=== PATIENT | male | born 1940 | race Caucasian/White ===

== ENCOUNTER 2019-02-08 10:15 | Outpatient (REF) | payer MEDICARE, SELFPAY ==
[2019-02-08 13:38] LABS: ALT 28 U/L (12-78); AST 21 U/L (15-37); Albumin 3.6 g/dL (3.4-5.0); Alkaline Phosphatase 164 U/L (46-116); Anion Gap 10.6 mmol/L (3-11); BUN 26 mg/dL (7-18); Bilirubin, Total 0.7 mg/dL (0.2-1.0); CO2 24.4 mmol/L (21.0-32.0); CREATININE 1.02 mg/dL (0.70-1.30); Chloride 108 mmol/L (98-107); Cholesterol 148 mg/dL (50-200); Glucose 89 mg/dL (70-100); HDL Cholesterol 47 mg/dL (40-60); LDL CHOLESTEROL 88 mg/dL (<100); Potassium 4.2 mmol/L (3.5-5.1); Sodium 143 mmol/L (136-145); Total Protein 6.3 g/dL (6.4-8.2); Triglyceride 67 mg/dL (30-150)
[2019-02-08 13:54] LABS: Calcium 8.7 mg/dL (8.5-10.1)
== END 2019-02-08 10:35 ==
LOC: NCHCN 10:15
PROVIDERS: PCP Nurse Practitioner Family; Visit Provider Nurse Practitioner Family
DX: I10 Essential (primary) hypertension (principal)
CPT/HCPCS: 80053; 80061; 83721

== ENCOUNTER 2020-09-05 19:57 | Emergency (ER) | payer OTHER, SELFPAY ==
[2020-09-05] VITALS (16 sets, daily range): BP systolic 164–226; BP diastolic 67–97; PULSE 61–89; RESP 11–26; TEMP 37.1; O2SAT 95–98
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
[2020-09-05] MEDS: Normal Saline 1,000 ML 150 ML IV (20:45)
--- NOTE | 2020-09-05 20:45 | RT.EKG_ITS ---
APPROVED REPORT Exam: Resting ECG Patient Location: E HR:73 bpm ECG Measurements Heart Rate 73 AXIS NC 206 P 42 QRSd 97 QRS 30 QT 403 T 50 QTc 445 Conclusion Sinus arrhythmia...V-rate 64- 88, variation>10% Normal Victor No Acute ST changes.
[2020-09-05 21:06] LABS: Abs Immature Grans 0.03 10^3/uL (0.0-0.06); Absolute Basophil Count 0.03 10^3/uL (0.0-0.2); Absolute Eosinophil Count 0.31 10^3/uL (0.0-0.7); Absolute Lymphocyte Count 1.29 10^3/uL (1.2-3.4); Absolute Monocyte Count 0.57 10^3/uL (0.1-0.8); Absolute Neutrophil Count 4.75 10^3/uL (1.2-6.7); Basophils % 0.4; Eosinophils % 4.4; HCT 45.6 % (40.0-50.0); HGB 15.2 g/dL (13.5-17.5); Immature Grans % 0.4; Lymphocytes % 18.5; MCH 30.8 pg (27.0-33.0); MCHC 33.3 % (32.0-36.0); MCV 92.5 fL (80-95); MPV 9.5 fL (8.0-11.0); Monocytes % 8.2; Neutrophils % 68.1; Nucleated RBC 0 %; Platelet Count 211 10^3/uL (130-400); RBC 4.93 10^6/uL (4.36-5.78); RDW 12.6 % (11.8-14.1); RDW-SD 42.9 fL; WBC 6.98 10^3/uL (4.4-10.8)
[2020-09-05] MEDS: Omnipaque 350 MG/ML 100 ML BTL IJ ×2 (21:23→21:50)
[2020-09-05] MEDS: Normal Saline - Diluent 50 ML VIAL IV ×2 (21:24→21:52)
[2020-09-05 21:27] LABS: ALT 34 U/L (16-63); AST 20 U/L (15-37); Albumin 3.6 g/dL (3.4-5.0); Alkaline Phosphatase 136 U/L (46-116); Anion Gap 5.6 mmol/L (3-11); BUN 23 mg/dL (7-18); Bilirubin, Total 0.4 mg/dL (0.2-1.0); CO2 28.4 mmol/L (21.0-32.0); CREATININE 1.37 mg/dL (0.70-1.30); Calcium 8.5 mg/dL (8.5-10.1); Chloride 105 mmol/L (98-107); Glucose 107 mg/dL (74-106); Potassium 3.9 mmol/L (3.5-5.1); Sodium 139 mmol/L (136-145); Total Protein 6.9 g/dL (6.4-8.2)
[2020-09-05 21:32] LABS: Prothrombin Time 10.4 sec (9.3-11.0)
[2020-09-05 21:43] LABS: Troponin I < 0.05 ng/mL (<0.06)
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
== END 2020-09-05 23:15 | disposition home or self-care (01) ==
LOC: ER 22:04
PROVIDERS: Emergency Provider Nurse Practitioner Acute Care; PCP Nurse Practitioner Family
DX: M54.6 Pain in thoracic spine (principal); R10.11 Right upper quadrant pain; V43.62XA Car passenger injured in collision with other type car in traffic accident, initial encounter
CPT/HCPCS: 36415; 74177; 80053; 86850; 86900; 86901; 93005; 96360; 96361; 99285; 70450; 71260; 72125; 83735; 84484; 85025; 85610; 85730; 93010; 99284; J3490

== ENCOUNTER 2021-07-16 16:22 | Outpatient (REF) | payer MEDICARE, SELFPAY ==
[2021-07-16 17:35] LABS: HCT 48.5 % (40.0-50.0); HGB 15.9 g/dL (13.5-17.5); MCH 30.8 pg (27.0-33.0); MCHC 32.8 % (32.0-36.0); MCV 93.8 fL (80-95); MPV 10.1 fL (8.0-11.0); Platelet Count 180 10^3/uL (130-400); RBC 5.17 10^6/uL (4.36-5.78); RDW-SD 45.3 fL; WBC 5.05 10^3/uL (4.4-10.8)
[2021-07-16 18:49] LABS: ALT 29 U/L (16-63); AST 16 U/L (15-37); Albumin 3.9 g/dL (3.4-5.0); Alkaline Phosphatase 171 U/L (46-116); Anion Gap 9.9 mmol/L (3-11); BUN 32 mg/dL (7-18); Bilirubin, Total 0.8 mg/dL (0.2-1.0); CO2 25.1 mmol/L (21.0-32.0); CREATININE 1.1 mg/dL (0.70-1.30); Calcium 8.9 mg/dL (8.5-10.1); Calculated LDL 88 mg/dL (<100); Chloride 110 mmol/L (98-107); Cholesterol 152 mg/dL (<200); Glucose 86 mg/dL (74-106); HDL Cholesterol 56 mg/dL (40-60); Potassium 4.5 mmol/L (3.5-5.1); Sodium 145 mmol/L (136-145); Total Protein 6.6 g/dL (6.4-8.2); Triglyceride 40 mg/dL (<150)
== END 2021-07-16 16:23 | disposition home or self-care (01) ==
LOC: NCHCN 16:22
PROVIDERS: PCP Nurse Practitioner Family; Visit Provider Physician Assistant
DX: I10 Essential (primary) hypertension (principal)
CPT/HCPCS: 80053; 80061; 85027

== ENCOUNTER 2022-02-11 18:40 | Outpatient (REF) | payer MEDICARE, SELFPAY ==
[2022-02-11 15:31] LABS: ALT 30 U/L (16-63); AST 19 U/L (15-37); Albumin 3.9 g/dL (3.4-5.0); Alkaline Phosphatase 106 U/L (46-116); Anion Gap 9.7 mmol/L (3-11); BUN 31 mg/dL (7-18); Bilirubin, Total 0.9 mg/dL (0.2-1.0); CO2 23.3 mmol/L (21.0-32.0); CREATININE 1.1 mg/dL (0.70-1.30); Calcium 8.8 mg/dL (8.5-10.1); Chloride 110 mmol/L (98-107); Glucose 96 mg/dL (74-106); Potassium 4.8 mmol/L (3.5-5.1); Sodium 143 mmol/L (136-145); Total Protein 6.6 g/dL (6.4-8.2)
== END 2022-02-11 18:41 | disposition home or self-care (01) ==
LOC: NCHCN 18:40
PROVIDERS: PCP Nurse Practitioner Family; Visit Provider Physician Assistant
DX: M88.9 Osteitis deformans of unspecified bone (principal)
CPT/HCPCS: 80053

== ENCOUNTER → 2022-04-27 09:21 | Outpatient (BNVA) | payer MEDICARE, SELFPAY | PROVIDERS: PCP Nurse Practitioner Family; Referring Provider Nurse Practitioner Family; Visit Provider Surgery | DX: K46.9 Unspecified abdominal hernia without obstruction or gangrene (principal) | CPT/HCPCS: 99214; 99241 ==

== ENCOUNTER 2022-05-04 02:49 | Outpatient (CLI) | payer MEDICARE, SELFPAY ==
[2022-05-04 10:31] LABS: Source Nasal/Nares
[2022-05-04 14:06] LABS: COVID-19 PCR Negative (Negative)
== END 2022-05-04 02:50 | disposition home or self-care (01) ==
LOC: LBO 02:49
PROVIDERS: PCP Physician Assistant; Visit Provider Surgery
DX: Z20.822 Contact with and (suspected) exposure to COVID-19 (principal); Z01.818 Encounter for other preprocedural examination
CPT/HCPCS: 87635

== ENCOUNTER 2022-05-06 06:12 | Day surgery (SDC) | payer MEDICARE, SELFPAY ==
[2022-05-06] VITALS (9 sets, daily range): BP systolic 110–161; BP diastolic 51–67; PULSE 53–63; RESP 16–18; TEMP 36.3–36.5; O2SAT 94–99; BMI 27.0
[2022-05-06] MEDS: Acetaminophen 500 MG TAB 1000 MG PO (06:46)
[2022-05-06] MEDS: Gabapentin 300 MG CAP 600 MG PO (06:47)
[2022-05-06] MEDS: Celecoxib 200 MG CAP PO (06:47)
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
[2022-05-06] MEDS: Lactated Ringers 1,000 ML 80 ML IV (07:05)
--- NOTE | 2022-05-06 07:28 | W.PM.DSUDISC ---
Discharge Plan Disposition Patient Disposition: HOME Condition: Good Discharge Details Reason For Visit: left inguinal herniorraphy Attending Provider: Kurt Kebede Primary Care Provider: Skinny Tucker Home Meds and New Rx's Prescriptions: Continued lisinopril 20 mg tablet 20 mg PO DAILY alendronate [Fosamax] 70 mg tablet 70 mg PO QWEEK Discharge Instructions Instructions: Inguinal Hernia Repair (DC) Additional Instructions: 1. Resume all of your medications. 2. Use percocet as needed for pain 3. No heavy lifting until I see you in the office 4. No soaking or tub baths until I see you in the office DS: Diagnosis Discharge Diagnosis (1) Indirect left inguinal hernia: Status: Acute Asessment and Plan: herniuorraphy with mesh
[2022-05-06] MEDS: ceFAZolin 2 GM/50 ML BAG IVPB (07:31)
[2022-05-06] MEDS: Bupivacaine 0.5% Pres-Free 30 ML VIAL (07:58)
--- NOTE | 2022-05-06 08:21 | W.ANESNERVE ---
Nerve Block Single Injection Procedure Date and Time Date Performed: 05/06/22 Procedure Start: 07:43 Location Where Procedure Performed Procedure Location: Operating Room Procedure Stop: 07:49 Reason Performed: Postoperative Analgesia Requesting Provider: Kurt Kebede Timeout Performed Timeout Performed: Yes Monitoring Used ECG, Blood Pressure, SpO2, ETCO2 and See EMR for corresponding vital signs Sterility Sterility: Hand Hygiene, Surgical Cap, Surgical Mask, Sterile Gloves and Chlorhexidine Sedation Given During Procedure Sedation Given (Indicate Dose Given): No Sedation given Patient Mental Status Patient Mental Status: Performed under general anesthesia Nerve Block 1st Nerve Block: Laterality: Left Block Type: TAP Unilateral Needle / Catheter Used: 100mm SonoPlex II Local Anesthetic Bolus (Indicate Dose Given): Injected in 3-5ml increments after negative blood aspiration and Bupivacaine 0.25% Dose:: 30mL Additives (Indicate Dose Given): Precedex Dose:: 40mcg Ultrasound: Sterile probe cover and gel used Ultrasound Image Saved?: Yes Nerve Stimulator: Not Used Paresthesia: None Procedure Tolerated: No Complications Procedure Outcome: Successful Performed By: Kassandra Aquino
--- NOTE | 2022-05-06 08:47 | W.PM.DSUDISC ---
Discharge Plan Disposition Patient Disposition: HOME Condition: Good Discharge Details Reason For Visit: left inguinal herniorraphy Attending Provider: Kurt Kebede Primary Care Provider: Skinny Tucker Home Meds and New Rx's Prescriptions: New oxycodone 5 mg tablet 5 mg PO Q8H PRN (Reason: pain) Qty: 5 0RF Rx Instructions: take one tab as needed for pain. do not exceed 3 atbs per day Continued lisinopril 20 mg tablet 20 mg PO DAILY alendronate [Fosamax] 70 mg tablet 70 mg PO QWEEK Discharge Instructions Instructions: Inguinal Hernia Repair (DC) Additional Instructions: 1. Resume all of your medications. 2. Use oxycodone as needed for pain. 3. Okay to use tylenol and ibuprofen over the counter as needed. 4. Leave bandage in place for 24 hours, then remove. 5. Shower with warm soapy water. Pat dry. Use a bandaid if needed to protect your clothing. 6. No soaking or tub baths until I see you in the office. 7. No heavy lifting until I see you in the office. 8.Call the office (or go directly to the emergency room after hours) if you notice any of the following: Develop chills (warm to touch), or if you have a thermometer and your temperature is above 101 Difficulty breathing or difficultly swallowing Persistent vomiting Any bleeding ? exceeding one tablespoon 6. Call your physician if the site where your intravenous was started becomes red, swollen, painful, and warm to touch. Referrals: Kurt Kebede MD [ [facility] STAFF PHYSICIAN] - Activity:: Activity as Tolerated Remove Dressings/Wound Care:: 24 hours Shower/Bathe:: 24 hours Diet:: As Tolerated Discharge Orders Discharge Orders: Discharge Order (Routine); Ordered 05/06/22 Ordered By: Kurt Kebede DS: Diagnosis Discharge Diagnosis (1) Left inguinal hernia: Status: Acute Asessment and Plan: Open left inguinal herniorrhaphy with mesh
[2022-05-06] MEDS: Bupivacaine 0.25% Pres-Free 30 ML VIAL (08:51)
--- NOTE | 2022-05-06 08:58 | ROE_ITS ---
Date of service: 05/06/22 Time of Service: 08:58 Operative Note Operative Note DATE OF PROCEDURE: 05/06/22 PRE-OP DIAGNOSIS: Left inguinal hernia POST-OP DIAGNOSIS: same PROCEDURE: Open left inguinal herniorrhaphy with mesh SURGEON: Kurt Kebede ASSISTING SURGEON: Eunice Zacarias ANESTHESIA TYPE: General LMA/ETT Refer to Anesthesia Record ESTIMATED BLOOD LOSS: 25 PATHOLOGY: none sent COMPLICATIONS: None Patient was transported to: same day Patient's condition: stable Implants: Mesh plug and patch Findings: Left inguinal hernia with direct and indirect components Procedure Description: I began by confirming the correct site with the patient. Next, after induction of general anesthesia and a ultrasound-guided local block I turned my attention to the surgical field. The surgical site was then prepped and draped in the usual fashion. I began by making an oblique incision over the left inguinal region. I dissected down through the skin to the deep fascia. Next, I incised the fascia along the length of the inguinal canal to the external ring. I then carefully identified the ilioinguinal nerve it was fairly adherent to the cord structures, and after great consideration, I chose to divide the nerve to minimize the chances of postoperative neuropathy. Once this was complete, I bluntly dissected the shelving edge of the inguinal ligament down towards the pubic tubercle. Here, I encircled all cord structures with a Sylvester drain. Next, I began dissecting the specific cord structures. Great care was taken to spare the vas deferens and the blood supply to the testicle. Next, I isolated the hernia sac from the other inguinal structures. I reduced it back to its normal anatomic position. I then used a large mesh plug to obliterate the defect at the internal ring. I fixed in place with interrupted Prolene stitches. In this case, there was a modest amount of direct inguinal hernia as well due to laxity of the inguinal floor and posterior wall. Next, I buttressed the posterior floor of the inguinal canal with a large mesh patch. I started by fixing it to the pubic tubercle. Next, I used Prolene sutures to affix it to the shelving edge of the inguinal ligament and the conjoined tendon. Laterally I tacked it to the transversalis fascia and reconstructed an internal ring without any strain on the cord structures. Once this was complete, I irrigated the surgical field. It appeared hemostatic. I then closed the anterior portion of the fascia to reconstruct the front wall of the inguinal canal. I did this with interrupted Vicryl stitches. Once again, I irrigated the surgical field a nd inspected for hemostasis. Finally, I approximated the superficial fascia and the deep layers of the skin with absorbable suture. Skin was closed with running subcuticular stitches. Bandages were applied, the patient was awakened and transferred to the recovery unit.
--- NOTE | 2022-05-06 10:04 | W.ANESPOSTOP ---
Postoperative Evaluation Date, Time and Location Date Performed: 05/06/22 Time Performed: 09:40 Patient Location: PACU Vital Signs Most Recent Imported Vital Signs: Most Recent Vital Signs Temp Pulse Resp BP Pulse Ox 36.4 C L 63 16 110/60 94 05/06/22 09:45 05/06/22 09:45 05/06/22 09:45 05/06/22 09:45 05/06/22 09:45 Pain Score Most Recent Pain Score: Most Recent Pain Score Pain Level 1 05/06/22 09:39 Assessment Mental Status: Awake (Alert & Oriented to Patient Baseline) Airway and Respiratory Function: Patent airway with normal (patient baseline) respiratory exam Cardiovascular Function: Hemodynamically Stable Hydration Status: Adequately Hydrated Nausea & Vomiting: No Nausea or Vomiting Pain: Pain is tolerable per patient Peripheral Nerve Block: Regional nerve block not resolved at time of post operative discharge
== END 2022-05-06 11:44 | disposition home or self-care (01) ==
PROVIDERS: PCP Physician Assistant; Visit Provider Surgery
PROC: (CPT 49505; principal; 2022-05-06 07:30)
DX: K40.90 Unilateral inguinal hernia, without obstruction or gangrene, not specified as recurrent (principal); I10 Essential (primary) hypertension
CPT/HCPCS: 49505; 76942; C1781; J0690; J1100; J2405

== ENCOUNTER → 2022-05-18 08:35 | Outpatient (BNVA) | payer MEDICARE, SELFPAY | PROVIDERS: PCP Physician Assistant; Referring Provider Nurse Practitioner Family; Visit Provider Surgery | DX: Z48.817 Encounter for surgical aftercare following surgery on the skin and subcutaneous tissue (principal) ==

== ENCOUNTER 2023-07-21 10:57 | Emergency (ER) | payer MEDICARE, SELFPAY ==
[2023-07-21] VITALS (8 sets, daily range): BP systolic 158–207; BP diastolic 67–86; PULSE 63–74; RESP 16; TEMP 36.6; O2SAT 95
--- NOTE | 2023-07-21 11:15 | DI.RAD_ITS ---
Exam(s) XR RIBS RT W PA LAT CHEST EXAM: XR RIBS RT W PA LAT CHEST CLINICAL HISTORY: rib pain R and SOB TECHNIQUE: 2D digital imaging was performed. COMPARISON: No exams were available for comparison FINDINGS: RIBS 3 VIEWS-RIGHT There are no obvious acute right rib fractures evident. No lytic rib lesions identified. CXR- 2 VIEWS: Heart size is normal. Mediastinum not widened. There is a moderate size right pleural effusion. Al so infiltrate in the right lung base. Left lung is clear. No pneumothorax. IMPRESSION: 1. No obvious rib fractures evident. Also no significant rib lesions. 2. Infiltrate in the right lung base and there is a small-moderate size right pleural effusion. DATA REPOSITORY: RADIATION DOSE DELIVERED:
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
[2023-07-21 13:01] LABS: Abs Immature Grans 0.03 10^3/uL (0.0-0.06); Absolute Basophil Count 0.05 10^3/uL (0.0-0.2); Absolute Eosinophil Count 0.19 10^3/uL (0.0-0.7); Absolute Lymphocyte Count 1.17 10^3/uL (1.2-3.4); Absolute Monocyte Count 1.33 10^3/uL (0.1-0.8); Absolute Neutrophil Count 7.07 10^3/uL (1.2-6.7); Basophils % 0.5; Eosinophils % 1.9; HCT 49.4 % (40.0-50.0); HGB 16.8 g/dL (13.5-17.5); Immature Grans % 0.3; Lymphocytes % 11.9; MCH 31.4 pg (27.0-33.0); MCV 92 fL (80-95); MPV 8.9 fL (8.0-11.0); Monocytes % 13.5; Neutrophils % 71.9; Platelet Count 191 10^3/uL (130-400); RBC 5.35 10^6/uL (4.36-5.78); RDW 12.8 % (11.8-14.1); RDW-SD 43.7 fL; WBC 9.84 10^3/uL (4.4-10.8)
[2023-07-21 13:17] LABS: ALT 28 U/L (16-63); AST 16 U/L (15-37); Albumin 3.9 g/dL (3.4-5.0); Alkaline Phosphatase 86 U/L (46-116); BUN 29 mg/dL (7-18); Bilirubin, Total 0.8 mg/dL (0.2-1.0); CREATININE 1.1 mg/dL (0.70-1.30); Calcium 9.6 mg/dL (8.5-10.1); Chloride 104 mmol/L (98-107); Estimated GFR 66.61 (mL/min/1.73m2); Glucose 98 mg/dL (74-106); Potassium 4.6 mmol/L (3.5-5.1); Sodium 138 mmol/L (136-145)
[2023-07-21] MEDS: Omnipaque 350 MG/ML 100 ML BTL 70 ML IJ ×2 (13:28→17:34)
[2023-07-21] MEDS: Normal Saline - Diluent 50 ML VIAL IJ ×2 (13:29→17:35)
--- NOTE | 2023-07-21 13:40 | DI.CT_ITS ---
Exam(s) CT CHEST W EXAM: CT CHEST W CLINICAL HISTORY: right sided chest pain pleural effusion. TECHNIQUE: Multi planar reconstructions were performed. CONTRAST MATERIAL: Omnipaque 350; 75 cc COMPARISON: CT CT CHEST/ABD/PEL W from 09/05/2020 CR XR RIBS RT W PA LAT CHEST from 07/21/2023 FINDINGS: CHEST: LUNGS: There is some infiltrate and volume loss in the right lower lobe basal segments. There is als o a moderate size right pleural effusion. This appears somewhat loculated superiorly. There are no significant focal findings in the right upper lobe. Mild atelectasis noted in the lower right middle lobe just above the hemidiaphragm. There are no significant focal findings in the opposite-left gregg g. However, there is some calcified pleural plaque noted anteriorly over the left upper lobe and zandra gular segment, this being sessile plaque. No left pleural effusion evident. MEDIASTINUM: There is no hilar nor mediastinal adenopathy. Visualized thyroid unremarkable. CARDIAC: Heart size is normal. There is no pericardial effusion.Thoracic aorta caliber normal. No d issection. VISUALIZED UPPER ABDOMEN:There are no significant adrenal masses. There are bilateral renal cysts in cluding parapelvic cysts on the left and cortical cysts on the right. A large right kidney cyst modesto uring 11 by 9 cm is noted, partially included in the field of view. OSSEOUS: No significant osseous lesions.. IMPRESSION: 1. There is infiltrate and volume loss in the right lower lobe basal segments and there is a moderate size right pleural effusion appears partially loculated. Please note that this study was not perfor med with pulmonary embolus protocol. 2. On the opposite-left side there is sub solid partially calcified pleural plaque anteriorly over th e left upper lobe/lingular segment. No pleural effusion on the left side. 3. Upper abdominal findings as above. Discussed by phone with ER physician RADIATION DOSE DELIVERED: Total DLP DATA REPOSITORY: All CT scans at this facility are submitted to the National Radiology Data Registry (NRDR) Dose Index Registry (DIR) with the [employer] (ACR). RADIATION OPTIMIZATION: All CT scans at this facility use at least one of these dose optimization te chniques: automated exposure control; mA and/or kV adjustment per patient size (includes targeted exa ms where dose is matched to clinical indication); or iterative reconstruction.
--- NOTE | 2023-07-21 15:00 | DI.CT_ITS ---
Exam(s) CT CHEST PE CTA EXAM: CT CHEST PE CTA CLINICAL HISTORY: chest pain. TECHNIQUE: Imaging Protocol: Axial CT angiography was performed with multi-slice acquisition and mu lti-planar and/or 3D reconstructions. CONTRAST MATERIAL: Intravenous: Omnipaque 350 contrast volume:70 mL COMPARISON: CT CT CHEST W from 07/21/2023 FINDINGS: Tracheobronchial tree: Patent where visualized. Pulmonary parenchyma: There is again seen a right pleural effusion and subjacent infiltrate in the ri ght lower lobe. There is fluid seen in the right major fissure superiorly. There may also be some l oculation of the fluid seen in the lateral aspect of the right hemithorax and also the medial aspect of the right hemithorax. No architectural distortion. Pulmonary Arteries: No evidence of filling defect to suggest pulmonary emboli. Mediastinum and Coby: No dominant adenopathy or fluid collection. The esophagus is unremarkable. Visualized thyroid gland: Unremarkable. Pleura: There are calcified pleural plaques on the left. No pneumothorax. No left pleural effusion. Heart: The heart is not dilated. No coronary artery calcifications are seen. No pericardial effusion. Aorta: Thoracic aorta non-dilated. Atherosclerosis. Upper abdomen: Bilateral renal cysts. No follow-up is recommended. Soft tissues: Unremarkable. Bones: Within normal limits for the patient's age. IMPRESSION: 1. No evidence of pulmonary embolism, thoracic aortic dissection or aneurysm. 2. Stable findings in the right chest since examination from earlier in the day. Findings include ri ght pleural effusion and right infiltrates. 3. Findings were discussed with the emergency department on the date of the examination. RADIATION DOSE DELIVERED: Total DLP DATA REPOSITORY: All CT scans at this facility are submitted to the National Radiology Data Registry (NRDR) Dose Index Registry (DIR) with the [employer] (ACR). RADIATION OPTIMIZATION: All CT scans at this facility use at least one of these dose optimization te chniques: automated exposure control; mA and/or kV adjustment per patient size (includes targeted exa ms where dose is matched to clinical indication); or iterative reconstruction.
[2023-07-21] MEDS: Normal Saline 1,000 ML 1000 ML IV (15:10)
[2023-07-21] MEDS: MORPHine 4 MG/ML SYR IVP (16:57)
--- NOTE | 2023-07-21 18:15 | ED.PROG_ITS ---
Date of service: 07/21/23 Time of Service: 18:15 Medical Decision Making Care signed out by Dr. Chun, please see his documentation regarding initial ED presentation course. Plan at signout was to follow-up on CTA of the chest. If negative for PE, plan for discharge with oral antibiotics and outpatient follow- up. CT of the chest to assess for pulmonary embolism was interpreted by radiology: 1. No evidence of pulmonary embolism, thoracic aortic dissection or aneurysm. 2. Stable findings in the right chest since examination from earlier in the day. Findings include right pleural effusion and right infiltrates. 3. Findings were discussed with the emergency department on the date of the examination. I will initiate treatment Augmentin. Given concern for potential asbestosis with prior occupational exposure, I will have the patient follow-up with pulmonology. Usual customary discharge instructions reviewed with the patient. Sign Out Sign Out Data: Sign Out Comment: Patient who had right pleuritic chest pain and has a right pleural effusion awaiting CT PE angiogram to rule out pulmonary embolus. Most likely he has an infectious process that will be treated with antibiotics and discharged. Will be discharged after the PE study is done and is signed out to Dr. Lauro Gomez. Last updated by Austin Chun MD at 07/21/23 17:00 Discharge Plan Disposition Patient Disposition: Home Condition: Stable Discharge Details Clinical Impression: Right lower lobe pulmonary infiltrate, Pleural effusion on right Primary Care Provider: Skinny Tucker ED Provider: Luther Gomez Home Meds and New Rx's Prescriptions: New amoxicillin-pot clavulanate 875-125 mg tablet 1 tab PO BID Qty: 14 0RF Continued lisinopril 20 mg tablet 20 mg PO DAILY alendronate [Fosamax] 70 mg tablet 70 mg PO QWEEK Discharge Instructions Instructions: Oxycodone, Rapid Release (By mouth), Pleural Effusion (ED) Additional Instructions: Please take ibuprofen over the counter. Take 600mg by mouth every 6 hours as needed for pain. Please take acetaminophen (tylenol) - 650mg every 6 hours by mouth as needed for pain. Use lidocaine patches if these provide relief. Lidocaine patches are available [id number]. Dose according to label. Take oxycodone for severe pain only. Take 1 tab by mouth twice a day as needed for severe pain only. Please follow-up with pulmonology. Call on Monday to schedule an appointment. Please contact your primary care physician to arrange follow-up. Return to the ER immediately for any worsening or new concerning symptoms. Referrals: Skinny Tucker [Primary Care Provider] - Samina Newell MD [ [facility] STAFF PHYSICIAN] - Discharge Data Discharge Date/Time-TO BE ENTERED AT DEPARTURE: 07/21/23 19:03
[2023-07-21] MEDS: Amoxicillin 875/Clav. 125 TAB PO (18:31)
[2023-07-21] MEDS: Acetaminophen 500 MG TAB 1000 MG PO (18:55)
[2023-07-21] MEDS: Lidocaine 5% Patch 1 PATCH TP (18:55)
== END 2023-07-21 19:03 | disposition home or self-care (01) ==
PROVIDERS: Emergency Medicine Emergency Medical Services; Emergency Provider Student in an Organized Health Care Education/Training Program; PCP Physician Assistant
DX: R91.8 Other nonspecific abnormal finding of lung field (principal); J90 Pleural effusion, not elsewhere classified
CPT/HCPCS: 00123; 36415; 71275; 76604; 80053; 87040; 93308; 96361; 96374; 99285; 71046; 71100; 71260; 85025; 99284; J2270; J3490

== ENCOUNTER 2023-08-11 16:46 | Outpatient (REF) | payer MEDICARE, SELFPAY ==
[2023-08-11 14:38] LABS: HCT 41.8 % (40.0-50.0); HGB 14.2 g/dL (13.5-17.5); MCH 30.9 pg (27.0-33.0); MCV 91 fL (80-95); MPV 9.2 fL (8.0-11.0); Platelet Count 311 10^3/uL (130-400); RDW 12.1 % (11.8-14.1); RDW-SD 40.3 fL; WBC 8.35 10^3/uL (4.4-10.8)
[2023-08-11 14:51] LABS: Anion Gap 6.8 mmol/L (3-11); BUN 22 mg/dL (7-18); CO2 26.2 mmol/L (21.0-32.0); CREATININE 1.1 mg/dL (0.70-1.30); Calcium 8.8 mg/dL (8.5-10.1); Chloride 106 mmol/L (98-107); Estimated GFR 66.61 (mL/min/1.73m2); Glucose 88 mg/dL (74-106); Potassium 4.8 mmol/L (3.5-5.1); Sodium 139 mmol/L (136-145)
== END 2023-08-11 16:47 | disposition home or self-care (01) ==
LOC: NCHCN 16:46
PROVIDERS: PCP Physician Assistant; Visit Provider Physician Assistant
DX: I10 Essential (primary) hypertension (principal)
CPT/HCPCS: 80048; 85027

== ENCOUNTER → 2023-08-17 09:18 | Outpatient (BNVA) | payer MEDICARE, SELFPAY | PROVIDERS: PCP Physician Assistant; Referring Provider Physician Assistant; Visit Provider Student in an Organized Health Care Education/Training Program | DX: J90 Pleural effusion, not elsewhere classified (principal); R91.8 Other nonspecific abnormal finding of lung field | CPT/HCPCS: 99443 ==

== ENCOUNTER → 2023-08-18 01:44 | Outpatient (CLI) | payer MEDICARE, SELFPAY ==
--- NOTE | 2023-08-18 10:10 | DI.RAD_ITS ---
Exam(s) XR CHEST 2V PA LATERAL EXAM: XR CHEST 2V PA LATERAL CLINICAL HISTORY: assess resolution PLEURAL EFFUSION ON RT,J90. TECHNIQUE: 2D digital imaging was performed. COMPARISON: CR XR RIBS RT W PA LAT CHEST from 07/21/2023 FINDINGS: 2 views: Heart size is normal. The mediastinum is not widened. Moderate size right pleural effusion noted.. This has slightly further increased in size. Mild incr eased markings in the right lung base. No pleural effusion on the opposite-left side and no distinct radiographic findings in the left lung. No rib fractures identified. IMPRESSION: Moderate size right pleural effusion but slightly further increased in size from 07/21/2023. DATA REPOSITORY: RADIATION DOSE DELIVERED:
== END ==
PROVIDERS: PCP Physician Assistant; Visit Provider Student in an Organized Health Care Education/Training Program
DX: J90 Pleural effusion, not elsewhere classified (principal)
CPT/HCPCS: 71046

== ENCOUNTER 2023-08-28 06:30 | Day surgery (SDC) | payer MEDICARE, SELFPAY ==
[2023-08-28 06:30] VITALS: BP 177/80; PULSE 68; RESP 18; TEMP 36.5; O2SAT 96
[2023-08-28 07:50] VITALS: BP 167/75; PULSE 63; RESP 18; TEMP 36.6; O2SAT 97
--- NOTE | 2023-08-28 08:03 | NUR.NOTE ---
Procedure aborted in proc room after ultrasound revealed less effusion in base of right lung. Pt returned to [facility] dressed and instructions given to pt about how to use an incentive spirometer which was provided to pt in [facility].Nursing Note:
== END 2023-08-28 08:09 | disposition home or self-care (01) ==
LOC: SUR 06:30
PROVIDERS: PCP Physician Assistant; Visit Provider Student in an Organized Health Care Education/Training Program
PROC: (CPT 32554; principal; 2023-08-28 07:30)
DX: Z53.09 Procedure and treatment not carried out because of other contraindication (principal); J90 Pleural effusion, not elsewhere classified
CPT/HCPCS: 49083

== ENCOUNTER → 2023-09-11 11:29 | Outpatient (BNVA) | payer MEDICARE, SELFPAY | PROVIDERS: PCP Physician Assistant; Referring Provider Physician Assistant; Visit Provider Student in an Organized Health Care Education/Training Program | DX: J90 Pleural effusion, not elsewhere classified (principal); R06.00 Dyspnea, unspecified | CPT/HCPCS: 76604 ==

== ENCOUNTER 2024-03-22 09:53 | Outpatient (REF) | payer MEDICARE, SELFPAY ==
[2024-03-22 20:08] LABS: ALT 27 U/L (16-63); AST 18 U/L (15-37); Albumin 3.7 g/dL (3.4-5.0); Alkaline Phosphatase 79 U/L (46-116); Anion Gap 8.9 mmol/L (3-11); BUN 47 mg/dL (7-18); Bilirubin, Total 0.77 mg/dL (0.2-1.0); CO2 26.1 mmol/L (21.0-32.0); CREATININE 1.5 mg/dL (0.70-1.30); Calcium 9.2 mg/dL (8.5-10.1); Chloride 107 mmol/L (98-107); Estimated GFR 45.91 (mL/min/1.73m2); Glucose 95 mg/dL (74-106); Potassium 4.2 mmol/L (3.5-5.1); Sodium 142 mmol/L (136-145); Total Protein 6.4 g/dL (6.4-8.2)
== END 2024-03-22 09:54 | disposition home or self-care (01) ==
LOC: NCHCN 09:53
PROVIDERS: PCP Physician Assistant; Visit Provider Physician Assistant
DX: I10 Essential (primary) hypertension (principal)
CPT/HCPCS: 80053

== ENCOUNTER → 2024-04-08 10:11 | Outpatient (BNVA) | payer MEDICARE, SELFPAY | PROVIDERS: PCP Physician Assistant; Referring Provider Physician Assistant; Visit Provider Physician Assistant Surgical | DX: J90 Pleural effusion, not elsewhere classified (principal) | CPT/HCPCS: 76604; 99214 ==

== ENCOUNTER → 2024-04-19 00:22 | Outpatient (CLI) | payer MEDICARE, SELFPAY ==
--- NOTE | 2024-04-19 08:30 | DI.US_ITS ---
APPROVED REPORT EXAM: Comprehensive 2D, Doppler, and color-flow Echocardiogram Patient Location: Out-Patient [employer] Operator: Hattie Dueñas RDCS (AE) Indications: Dyspnea, Pleural effusion Other Information Study Quality: Adequate Conclusion Normal left ventricular wall thickness and chamber size. Ejection fraction is 60%. Wall motion is n ormal Normal right ventricular size and function Both atria are normal in size Aortic valve is mildly sclerotic and trileaflet with mild to moderate regurgitation There is no additional structural or hemodynamically significant valvular disease Wall motion Left Ventricle The left ventricle is normal size. The left ventricular systolic function is normal. The left ventric ular ejection fraction is within the normal range. There is normal left ventricular wall thickness. T here is normal LV segmental wall motion. There is no ventricular septal defect visualized. LVEF is 60 %. Right Ventricle The right ventricle is normal size. The right ventricular systolic function is normal. Atria The left atrium size is normal. The right atrium size is normal. The interatrial septum is intact wit h no evidence for an atrial septal defect. Aortic Valve The Aortic valve is mildly sclerotic. Aortic valve is trileaflet. There is no aortic valvular stenosi s. Mild to moderate aortic regurgitation. Mitral Valve The mitral valve is normal in structure. No evidence of mitral valve stenosis. Trace mitral regurgita tion. Tricuspid Valve The tricuspid valve is normal in structure. There is no tricuspid valve stenosis. Trace tricuspid reg urgitation. Unable to assess PA pressure. Pulmonic Valve Pulmonic valve is not well visualized. There is no pulmonic valvular stenosis. There is no pulmonic v alvular regurgitation. Great Vessels The aortic root is normal in size. Ascending aorta is not well visualized. Aortic arch is normal in c aliber. IVC is normal in size and collapses >50% with inspiration. Pericardium There is no pericardial effusion. 2D Dimensions IVSD d PLAX 1.04 cm M: 0.6-1.2 Ao Root d 3.30 cm M: 3.1 - 3.7 LVPW d PLAX 1.03 cm M: 0.6 - 1.2 LVID d PLAX 4.76 cm M: 4.2 - 5.8 LVDs 3.20 cm M: 2.5 - 4.0 LV EF Teichholz 61.2 % FS 32.78 % LV EDV (Teich) 105.2 mL LV ESV (Teich) 40.9 mL M-Mode TAPSE 2.43 cm (M/F) >1.7 Auto EF LV EDV A4C 130.7 mL LV EDV A2C 143.2 mL LV EDV BP 136.5 mL LV ESV A4C 51.7 mL LV ESV A2C 59.3 mL LV ESV BP 55.2 mL LVEF(%) A4C 60.5 % LVEF(%) A2C 58.6 % LVEF(%) BP 59.5 % LV SV A4C 79.1 ml LV SV A2C 84.0 ml LV SV BP 81.3 ml LV CO A4C 4.0 L/min LV CO A2C 4.1 L/min LV CO BP 4.0 L/min HR A4C 50.00 BPM HR A2C 49.38 BPM LV EDV Index (BP) LA Volume LA Length A4C 4.8 cm LA Length A2C 4.8 cm LA Area A4C s 17.38 cm2 LA Area A2C s 19.24 cm2 LA Vol A4C A-L 53.21 mL LA Vol A2C A-L 65.75 mL LA Vol Biplane A-L 59.4 mL LA Vol/BSA A4C A-L LA Vol/BSA A2C A-L LA Vol/BSA BP A-L 31.2 mL/m2 LA Vol A4C MOD 50.3 mL LA Vol A2C MOD 59.7 mL LA Vol BP MOD 54.3 mL RA Volume RA Area A4C 10.8 cm2 RA ESV A4C (A-L) 24.5mL RA Vol/BSA A4C A-L RA Length A4C 4.0 cm RA ESV A4C (MOD) 23.2mL LV Diastology MV E' medial 0.056 (>0.07 m/s) MV E Vmax 0.66 (0.4-1.3 m/s) MV E/E' MED 11.81 (<14) MV A Vmax 0.85 (0.4-1.3 m/s) MV E' lateral 0.087 (>0.1 m/s) E/A Ratio 0.8 MV E/E' LAT 7.59 (<14) MV E' Average 0.072 m/s MV E/E'(average) 9.24 Aortic Valve AoV Vmax 1.45 m/s LVOT Vmax 1.03 m/s AoV Peak Grad 48.5 mmHg LVOT Peak Grad 4.2 mmHg AoV Area (Vmax) 2.51 cm2 LVOT VTI 0.288 m AoV VTI 0.382 m LVOT Mean Grad 2.4 mmHg AoV Mean Cesar. 0.99 m/s LVOT SV 101.99 mL AoV Mean Grad 4.5 mmHg LVOT Diam s 2.10 cm AoV Area (VTI) 2.67 cm2 AV Regurg Peak Gr. 88.45 mmHg Velocity Ratio 0.71 AR Decel [place] 2.2m/sec2 AR DT 2175 msec AR PHT 631 msec AR Vmax 4.70 m/s Mitral Valve MV DT 324 (160-240 msec) MV Vmax TIPS 0.90 m/s MV Mean Grad 1.3 (<2mmHg) MV VTI 0.288 m Pulmonary Valve PV Vmax 0.85 (0.5-1.5 m/s) RVOT Vmax 0.70 m/s PV Peak Grad 2.9 mmHg RVOT Peak Gr. 2.0 mmHg PV Mean Cesar 0.57 m/s RVOT VTI 0.151 m PV Mean Grad 1.5 mmHg RVOT Mean Gr. 1.2 mmHg Tricuspid Valve RA Pressure 3.00 mmHg TV S' 0.12 m/s
== END ==
PROVIDERS: PCP Physician Assistant; Visit Provider Student in an Organized Health Care Education/Training Program
DX: R06.00 Dyspnea, unspecified (principal)
CPT/HCPCS: 93306

== ENCOUNTER 2025-03-28 12:22 | Outpatient (REF) | payer MEDICARE, SELFPAY ==
[2025-03-28 16:07] LABS: ALT 28 U/L (16-63); AST 21 U/L (15-37); Albumin 3.7 g/dL (3.4-5.0); Alkaline Phosphatase 95 U/L (46-116); Anion Gap 8.1 mmol/L (3-11); BUN 37 mg/dL (7-18); Bilirubin, Total 0.7 mg/dL (0.2-1.0); CO2 24.9 mmol/L (21.0-32.0); CREATININE 1.2 mg/dL (0.70-1.30); Calcium 9.1 mg/dL (8.5-10.1); Calculated LDL 82 mg/dL (<100); Chloride 108 mmol/L (98-107); Cholesterol 146 mg/dL (<200); Estimated GFR 59.63 (mL/min/1.73m2); Glucose 94 mg/dL (74-106); HDL Cholesterol 54 mg/dL (>or=40); Potassium 4.5 mmol/L (3.5-5.1); Sodium 141 mmol/L (136-145); Total Protein 6.7 g/dL (6.4-8.2); Triglyceride 53 mg/dL (<150)
== END 2025-03-28 12:23 | disposition home or self-care (01) ==
LOC: NCHCN 12:22
PROVIDERS: PCP Physician Assistant; Visit Provider Physician Assistant
DX: I10 Essential (primary) hypertension (principal)
CPT/HCPCS: 80053; 80061